=== PATIENT | female | born 1995 | race African-American/Black ===

== ENCOUNTER 2018-01-03 00:25 | Emergency (ER) | payer OTHER ==
[2018-01-03 00:46] LABS: ABSOLUTE BASOPHILS # (AUTO) 0.1 10^3/uL (0.0-0.2); ABSOLUTE EOSINOPHILS # (AUTO) 0.1 10^3/uL (0.0-0.6); ABSOLUTE LYMPHOCYTES (AUTO) 1.9 10^3/uL (0.5-4.7); ABSOLUTE MONOCYTES (AUTO) 0.5 10^3/uL (0.1-1.4); ABSOLUTE NEUT (AUTO) 7.1 10^3/uL (1.7-8.2); BASOPHILS % (AUTO) 0.6 % (0-2); EOSINOPHILS % (AUTO) 0.8 % (0-6); HEMATOCRIT 31.9 % (36.0-47.0); HEMOGLOBIN 10.3 g/dL (12.0-15.5); LYMPHOCYTES % (AUTO) 19.8 % (13-45); MEAN CORPUSCULAR HEMOGLOBIN 22.5 pg (27.0-33.4); MEAN CORPUSCULAR HGB CONC 32.1 g/dL (32.0-36.0); MEAN CORPUSCULAR VOLUME 70 fl (80-97); MONOCYTES % (AUTO) 5.5 % (3-13); PLATELET COUNT 251 10^3/uL (150-450); RED BLOOD COUNT 4.55 10^6/uL (3.72-5.28); RED CELL DISTRIBUTION WIDTH 17.7 % (11.5-14.0); SEGMENTED NEUTROPHILS % (AUTO) 73.3 % (42-78); TOTAL CELLS COUNTED % (AUTO) 100 %; WHITE BLOOD COUNT 9.7 10^3/uL (4.0-10.5)
[2018-01-03 01:01] LABS: ALANINE AMINOTRANSFERASE 20 U/L (9-52); ALBUMIN 4.3 g/dL (3.5-5.0); ALCOHOL 13 mg/dL (NONE DETECTED); ALKALINE PHOSPHATASE 73 U/L (38-126); ANION GAP 10 (5-19); ASPARTATE AMINO TRANSFERASE 25 U/L (14-36); BILIRUBIN,DIRECT 0.3 mg/dL (0.0-0.4); BILIRUBIN,TOTAL 0.3 mg/dL (0.2-1.3); BLOOD UREA NITROGEN 10 mg/dL (7-20); CALCIUM 9.5 mg/dL (8.4-10.2); CARBON DIOXIDE 25 mmol/L (22-30); CHLORIDE 107 mmol/L (98-107); GLUCOSE 102 mg/dL (75-110); POTASSIUM 3.8 mmol/L (3.6-5.0); SODIUM 141.6 mmol/L (137-145); TOTAL PROTEIN 7.2 g/dL (6.3-8.2)
[2018-01-03 01:06] LABS: ACETAMINOPHEN < 10 ug/mL (10-30); SALICYLATE < 1.0 mg/dL (2.0-20.0)
[2018-01-03 01:41] LABS: APPEARANCE,URINE SLIGHTLY-CLOUDY; BILIRUBIN,URINE NEGATIVE (NEGATIVE); COLOR,URINE YELLOW; GLUCOSE, URINE NEGATIVE (NEGATIVE); KETONES,URINE NEGATIVE (NEGATIVE); LEUKOCYTE ESTERASE,URINE LARGE (NEGATIVE); NITRITE,URINE NEGATIVE (NEGATIVE); PROTEIN,URINE NEGATIVE (NEGATIVE); URINE SPECIFIC GRAVITY 1.019; UROBILINOGEN,URINE NEGATIVE mg/dL (<2.0)
[2018-01-03 01:54] LABS: URINE AMPHETAMINES SCREEN NEGATIVE; URINE BARBITURATES SCREEN NEGATIVE; URINE BENZODIAZEPINES SCREEN NEGATIVE; URINE COCAINE SCREEN NEGATIVE; URINE MARIJUANA (THC) SCREEN UNCONFIRMED POSITIVE; URINE METHADONE SCREEN NEGATIVE; URINE PHENCYCLIDINE SCREEN NEGATIVE
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
--- NOTE | 2018-01-03 09:33 | ER Document Report ---
Doctor's Note Notes: 01/03/18 09:31 Rounds: Chart reviewed and patient interviewed. Interview only partial because patient told me she did not want to talk to me and would not cooperate with the exam or conversation any further. According to the chart, patient drank Windex and Listerine, although the patient says now that it was Lysol that she drank. She will not quantitate the ingestion. She said it was not a whole bottle, but will not answer any other questions. We will not allow me to examine her throat. Did not comment about any pain in her throat. Voice sounds normal. Vital signs are all essentially normal. Lab studies were normal with the following exceptions: EtOH 13, positive marijuana on drug screen. Urinalysis has positive leukocyte esterase, but patient will not answer questions as to her having symptoms of UTI. Afebrile. Patient appears to be medically stable for transfer or discharge. Daniel Woo MD
--- NOTE | 2018-01-03 17:02 | EKG REPORT ---
SEVERITY:- ABNORMAL ECG - SINUS RHYTHM ABNORMAL Q SUGGESTS ANTERIOR INFARCT : Confirmed by: Beverly Menjivar MD 03-Jan-2018 17:01:11
[2018-01-03] MEDS ORDERED: SERTRALINE HCL 50 MG TABLET PO SCH (17:45)
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
[2018-01-03] MEDS: PAROXETINE HCL 20 MG TABLET PO SCH (18:24)
[2018-01-03] MEDS: CLONIDINE HCL 0.1 MG TABLET PO SCH (21:45)
[2018-01-03] MEDS ORDERED: TRAZODONE HCL 50 MG TABLET PO SCH (22:00)
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
--- NOTE | 2018-01-04 09:19 | ER Document Report ---
Doctor's Note Notes: 01/04/18 09:18 Patient seen and examined. Vital signs reviewed. No issues overnight. She is currently asymptomatic. She denies any nausea or vomiting last night. Plan for psyche evaluation this morning with likely placement.
[2018-01-04] MEDS ORDERED: SERTRALINE HCL 50 MG TABLET PO SCH (10:00)
[2018-01-04] MEDS: PAROXETINE HCL 20 MG TABLET PO SCH (10:04)
[2018-01-04] MEDS ORDERED: BUSPIRONE HCL 10 MG TABLET PO SCH (16:15)
[2018-01-04] MEDS: CLONIDINE HCL 0.1 MG TABLET PO SCH (22:21)
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
[2018-01-05] MEDS ORDERED: SERTRALINE HCL 50 MG TABLET PO SCH (10:00)
[2018-01-05] MEDS ORDERED: VENLAFAXINE HCL 37.5 MG CAP.SR.24H PO SCH (10:00)
--- NOTE | 2018-01-05 10:14 | ER Document Report ---
Doctor's Note Notes: 01/05/18 10:09 Rounds: Chart reviewed and patient interviewed. Patient being evaluated for PTSD. Also reportedly ingested cleanser,? Last saw. Patient has no complaints of difficulty breathing or swallowing or pain in her throat. Oral exam is normal at this time. Vital signs are all normal. Lab studies were normal except for patient has some suggestion of a UTI on her urinalysis and she says she does have some discomfort and other symptoms suggestive of a UTI, which she is prone to getting. We will put her on a short course of Macrobid. Patient appears to be medically stable for transfer or discharge. Daniel Woo MD
[2018-01-05] MEDS ORDERED: NITROFURANTOIN MONOHYD/M-CRYST 100 MG CAPSULE PO SCH ×2 (10:15→22:00)
[2018-01-05 16:00] VITALS: BP 139/87
== END 2018-01-05 16:00 ==
LOC: ER 00:25
DX: T65.92XA Toxic effect of unspecified substance, intentional self-harm, initial encounter (principal); Y92.002 Bathroom of unspecified non-institutional (private) residence as the place of occurrence of the external cause; F32.9 Major depressive disorder, single episode, unspecified; T43.226A Underdosing of selective serotonin reuptake inhibitors, initial encounter; Z91.128 Patient's intentional underdosing of medication regimen for other reason; Z91.14 Patient's other noncompliance with medication regimen; R39.9 Unspecified symptoms and signs involving the genitourinary system
CPT/HCPCS: 93005; 99285; 36415; 87086; 80307 ×4; 84703; 85025; 87088; 80053; 81001; 87186; 93010; J3490; J8499